=== PATIENT | male | born 1965 | race American Indian/Alaskan Native ===

== ENCOUNTER 2018-01-22 15:51 | Emergency (ER) | payer SELFPAY ==
[2018-01-22 16:04] VITALS: BP 121/88
== END 2018-01-22 22:50 | disposition left against medical advice (07) ==
LOC: ED 15:51
DX: M25.572 Pain in left ankle and joints of left foot (principal); Z53.21 Procedure and treatment not carried out due to patient leaving prior to being seen by health care provider